=== PATIENT | male | born 1985 | race Caucasian/White ===

== ENCOUNTER 2021-07-28 07:02 | Emergency (ER) | payer OTHER ==
[~2021-07-28 07:02] MED LIST: BACTRIM DS TAB1 EACH PO; PROTONIX 40MG T40 MG PO
[2021-07-28] MEDS ORDERED: NAPROXEN500 MG PO (07:52)
== END 2021-07-28 07:59 | disposition home or self-care (01) ==
LOC: FER 07:02
DX: S83.91XA Sprain of unspecified site of right knee, initial encounter (principal); F17.200 Nicotine dependence, unspecified, uncomplicated; X50.1XXA Overexertion from prolonged static or awkward postures, initial encounter; Y92.009 Unspecified place in unspecified non-institutional (private) residence as the place of occurrence of the external cause
CPT/HCPCS: 99283